=== PATIENT | female | born 1965 | race Caucasian/White ===

== ENCOUNTER 2020-01-01 08:01 | Inpatient (IN) ==
[2020-01-01 08:18] VITALS: BMI 34.5
[2020-01-01] MEDS ORDERED: ZOFRAN TAB 4 MG PO ONE (08:50)
[2020-01-01] MEDS ORDERED: TORADOL 60 MG VIAL IM ONE (08:50)
--- NOTE | 2020-01-01 09:02 | DR.EXTPAIN ---
HPI Time seen Time Seen by Provider: 01/01/20 08:43 PCP Primary Care Physician: rafiq Complaint/Symptoms Chief Complaint:: tenderness around lower rib area with worsening to the pit of the abd and down to umbilicus. onset last night about 1999 late last meal at 1900 yesterday. has had similiar pain in the last year. 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 Past Surgical History Comment: carpal tunnel Family History History of Family Medical Conditions: Yes Family Medical History: Diabetes Mellitus, Cancer and Coronary Artery Disease Social History Type of Tobacco Use: None Alcohol Use: Rarely Do you use any recreational Drugs:: No Lives With: Family Lives Where: Home Travel Risk Coronavirus risk:travel/contact w/high risk person: No Has patient experienced Coronavirus symptoms: No Infectious screening In the last 2 months have you had wt loss of >10#?: NO Have you had fever, night sweats or hemotysis?: No Have you traveled outside the country in the last 6 months?: No Isolation: Standard ROS Review of Systems Constitutional: No Symptoms Reported Eyes: No Symptoms Reported ENTM: No Symptoms Reported Respiratoy: No Symptoms Reported Cardiovascular: No Symptoms Reported Gastrointestinal/Abdominal: Abdominal Pain and Nausea Genitourinary: No Symptoms Reported Neurological: No Symptoms Reported Musculoskeletal: No Symptoms Reported Integumentary: No Symptoms Reported Endocrine: No Symptoms Reported Psychiatric: No Symptoms Reported All Other Systems: Reviewed and Negative PE Vital Signs Vitals: Temperature 97.3 F Pulse Rate 95 Respiratory Rate 20 Blood Pressure 130/87 O2 Sat by Pulse Oximetry 95 General Limitations: No Limitations General Appearance: Alert and In No Apparent Distress Head Head Exam: Normal Inspection, Atraumatic and Normocephalic Eyes Eye exam: Normal Appearance and EOMI ENT ENT Exam: Normal Exam and Normal Oropharynx Neck Neck Exam: Normal Inspection, Full ROM and Trachea Midline Chest Chest Inspection: Normal Inspection Respiratory Respiratory Exam: Normal Lung Sounds Bilat Respiratory Exam: Bilateral: Clear to Auscultation Cardiovascular Cardiovascular Exam: Regular Rate Abdominal Exam Abdominal Exam: Normal Inspection, Normal Bowel Sounds, Soft and Tenderness; negative Distention and Guarding Abdominal Tenderness: Epigastrium Extremities Extremities Exam: Normal Inspection and Full ROM Upper Extremities Shoulder Exam: Normal Inspection and Full ROM Arm Exam: Normal Inspection and Full ROM Elbow Exam: Normal Inspection and Full ROM Forearm Exam: Normal Inspection and Full ROM Hand Exam: Normal Inspection and Full ROM Neuromotor Exam: Normal Exam Lower Extremities Upper Leg Exam: Normal Inspection Knee Exam: Normal Inspection Lower Leg Exam: Normal Inspection Ankle Exam: Normal Inspection Foot/Toe Exam: Normal Inspection Gait Exam: Observed and Normal Back Back Exam: Normal Inspection Neurological Neurological Exam: Alert, Oriented X3, CN II-XII Intact and Normal Gait Psychiatric Psychiatric Exam: Normal Affect Skin Skin Exam: Normal Color COURSE Consultation Called: 12:32 Call Returned: 12:32 Consultation Comments: case discussed with Dr. KARLO metz for IVF and antibiotics 1238: case discussed with DR. Raisa metz ROR Labs Reviewed Result Diagrams: 01/01/20 09:10 01/01/20 09:10 Laboratory: WBC 14.3 X10^3/uL (3.6-10.0) H 01/01/20 09:10 RBC 5.37 X10^6/uL (3.5-5.4) 01/01/20 09:10 Hgb 14.8 g/dL (12.0-16.0) 01/01/20 09:10 Hct 44.1 % (36.0-47.0) 01/01/20 09:10 MCV 82.1 fL (80.0-100.0) 01/01/20 09:10 MCH 27.6 pg (27.0-34.0) 01/01/20 09:10 MCHC 33.6 g/dL (33.0-35.0) 01/01/20 09:10 RDW 13.1 % (11.6-16.5) 01/01/20 09:10 Plt Count 319 X10^3/uL (150.0-450.0) 01/01/20 09:10 MPV 7.3 fL (7.4-11.0) L 01/01/20 09:10 Neut % (Auto) 84.7 % (42.0-75.0) H 01/01/20 09:10 Lymph % (Auto) 8.9 % (21.0-51.0) L 01/01/20 09:10 [place] % (Auto) 4.4 % (0.0-13.0) 01/01/20 09:10 Eos % (Auto) 1.1 % (0.9-2.9) 01/01/20 09:10 Baso % (Auto) 0.9 % (0.2-1.0) 01/01/20 09:10 Neut # (Auto) 12.1 x10^3/uL (2.2-4.8) H 01/01/20 09:10 Lymph # (Auto) 1.3 X10^3/uL (1.3-2.9) 01/01/20 09:10 [place] # (Auto) 0.6 x10^3/uL (0.3-0.8) 01/01/20 09:10 Eos # (Auto) 0.2 x10^3/uL (0.0-0.2) 01/01/20 09:10 Baso # (Auto) 0.1 X10^3/uL (0.0-0.1) 01/01/20 09:10 Absolute Nucleated RBC 0.0 /100WBC 01/01/20 09:10 Sodium 138 mmol/L (136-145) 01/01/20 09:10 Corrected Sodium 142 mmol/L (136-145) 01/01/20 09:10 Potassium 3.8 mmol/L (3.5-5.1) 01/01/20 09:10 Chloride 102 mmol/L (98-107) 01/01/20 09:10 Carbon Dioxide 26.6 mmol/L (21-32) 01/01/20 09:10 BUN 19 mg/dL (7-18) H 01/01/20 09:10 Creatinine 0.70 mg/dL (0.55-1.02) 01/01/20 09:10 Est GFR (MDRD) Af Amer > 60 (>60) 01/01/20 09:10 Est GFR (MDRD) Non-Af > 60 (>60) 01/01/20 09:10 Glucose 269 mg/dL (65-99) H 01/01/20 09:10 Calcium 8.2 mg/dL (8.5-10.1) L 01/01/20 09:10 Corrected Calcium TNP 01/01/20 09:10 Total Bilirubin 0.50 mg/dL (0.2-1.0) 01/01/20 09:10 AST 174 Units/L (15-37) H 01/01/20 09:10 ALT 281 Units/L (12-78) H 01/01/20 09:10 Alkaline Phosphatase 125 Units/L (46-116) H 01/01/20 09:10 Total Protein 8.0 g/dL (6.4-8.2) 01/01/20 09:10 Albumin 3.8 g/dL (3.4-5.0) 01/01/20 09:10 Globulin 4.2 g/dL (2.5-4.5) 01/01/20 09:10 Albumin/Globulin Ratio 0.9 Ratio (1.1-2.1) L 01/01/20 09:10 Lipase 63721 Units/L (73-393) H 01/01/20 09:10 HCG, Qual Negative <10 mIU/mL 01/01/20 09:10 Specimen Type Clean catch urine 01/01/20 08:54 Urine Color Yellow (YELLOW) 01/01/20 08:54 Urine Appearance Hazy (CLEAR) 01/01/20 08:54 Urine pH 5.0 (5.0 - 8.0) 01/01/20 08:54 Ur Specific [place] 1.020 (1.000-1.030) 01/01/20 08:54 Urine Protein Negative (NEGATIVE) 01/01/20 08:54 Urine Glucose (UA) 4+ (NEGATIVE) 01/01/20 08:54 Urine Ketones Negative (NEGATIVE) 01/01/20 08:54 Urine Occult Blood Negative (NEGATIVE) 01/01/20 08:54 Urine Nitrite Negative (NEGATIVE) 01/01/20 08:54 Urine Bilirubin Negative (NEGATIVE) 01/01/20 08:54 Urine Urobilinogen Normal (NORMAL) 01/01/20 08:54 Ur Leukocyte Esterase Negative (NEGATIVE) 01/01/20 08:54 Urine RBC None seen /HPF (0-3) 01/01/20 08:54 Urine WBC None seen /HPF (0-5) 01/01/20 08:54 Ur Squamous Epith Cells Rare /HPF (NEGATIVE) 01/01/20 08:54 Urine Bacteria Negative /HPF (NEGATIVE) 01/01/20 08:54 Ur Culture Indicated? No/not indicated 01/01/20 08:54 Opioid Opioid Risk Tool Age (Jaret box if 16-45): No History of Preadolescent Sexual Abuse: No Total: 0 Total Score Risk Category: Low Risk Copyright: Juniro BACON predicting aberrant behaviors
[2020-01-01] MEDS ORDERED: ZOFRAN TAB 4 MG ONE (09:06)
[2020-01-01] MEDS ORDERED: TORADOL 60 MG VIAL ONE (09:06)
[2020-01-01 09:16] LABS: BILIRUBIN,URINE NEGATIVE (NEGATIVE); BLOOD/HEMOGLOBIN,URINE NEGATIVE (NEGATIVE); GLUCOSE, URINE 4+ (NEGATIVE); KETONES,URINE NEGATIVE (NEGATIVE); LEUKOCYTE ESTERASE ,URINE NEGATIVE (NEGATIVE); NITRITES,URINE NEGATIVE (NEGATIVE); PROTEIN,URINE NEGATIVE (NEGATIVE); UROBILINOGEN,URINE NORMAL (NORMAL)
[2020-01-01 09:18] LABS: APPEARANCE,URINE HAZY (CLEAR); COLOR,URINE YELLOW (YELLOW)
[2020-01-01 09:23] LABS: BASOPHILS # (AUTO) 0.1 X10^3/uL (0.0-0.1); BASOPHILS % (AUTO) 0.9 % (0.2-1.0); EOSINOPHILS # (AUTO) 0.2 x10^3/uL (0.0-0.2); EOSINOPHILS % (AUTO) 1.1 % (0.9-2.9); HEMATOCRIT 44.1 % (36.0-47.0); HEMOGLOBIN 14.8 g/dL (12.0-16.0); LYMPHOCYTES # (AUTO) 1.3 X10^3/uL (1.3-2.9); LYMPHOCYTES % (AUTO) 8.9 % (21.0-51.0); MEAN CORPUSCULAR HEMOGLOBIN 27.6 pg (27.0-34.0); MEAN CORPUSCULAR HGB CONC 33.6 g/dL (33.0-35.0); MEAN CORPUSCULAR VOLUME 82.1 fL (80.0-100.0); MEAN PLATELET VOLUME 7.3 fL (7.4-11.0); MONOCYTES # (AUTO) 0.6 x10^3/uL (0.3-0.8); MONOCYTES % (AUTO) 4.4 % (0.0-13.0); NEUTROPHILS # (AUTO) 12.1 x10^3/uL (2.2-4.8); NEUTROPHILS % (AUTO) 84.7 % (42.0-75.0); PLATELET COUNT 319 X10^3/uL (150.0-450.0); RED BLOOD COUNT 5.37 X10^6/uL (3.5-5.4); RED CELL DISTRIBUTION WIDTH 13.1 % (11.6-16.5); WHITE BLOOD COUNT 14.3 X10^3/uL (3.6-10.0)
--- NOTE | 2020-01-01 09:24 | RAD ---
HISTORYABD PAIN patient reports epigastric painSTUDYACUTE ABDOMEN SERIESCOMPARISONNoneFINDINGSThis study includes AP chest, upright abdomen, and supine abdomen.The lungs are not well inflated. As result, there are hypoventilatory changes. No evidence for pneumonia or significant effusion.Heart size probably normal when accounting for the degree of inflation.Gas is present in nondilated bowel. No bowel obstruction or free air.No abnormal calcification is present.Bones are unremarkable.IMPRESSION1. [No acute cardiopulmonary disease.]2. [No evidence for acute abdominal pathology identified.]Electronically signed by: Darren Martinez (Jan 01, 2020 09:23:15)
[2020-01-01 09:34] LABS: ALANINE AMINOTRANSFERASE 281 Units/L (12-78); ALBUMIN 3.8 g/dL (3.4-5.0); ALKALINE PHOSPHATASE 125 Units/L (46-116); ASPARTATE AMINO TRANSFERASE 174 Units/L (15-37); BLOOD UREA NITROGEN 19 mg/dL (7-18); CALCIUM 8.2 mg/dL (8.5-10.1); CARBON DIOXIDE 26.6 mmol/L (21-32); CHLORIDE 102 mmol/L (98-107); COR NA(FOR HYPERGLY) 142 mmol/L (136-145); SODIUM 138 mmol/L (136-145); eGFR NON BLACK RACES > 60 (>60)
[2020-01-01 09:37] LABS: SERUM PREGNANCY TEST, QUAL NEGATIVE <10 mIU/mL
[2020-01-01 09:44] LABS: BACTERIA,URINE NEGATIVE /HPF (NEGATIVE); RBC,URINE NONE SEEN /HPF (0-3); SQUAMOUS EPITHELIAL CELL,UR RARE /HPF (NEGATIVE)
[2020-01-01 09:56] LABS: LIPASE 12621 Units/L (73-393)
--- NOTE | 2020-01-01 12:28 | US ---
HISTORYSEVERE RUQ PAINSTUDYGALL BLADDERCOMPARISONNoneTECHNIQUEMultiple parikh scale and color flow Doppler images of the right upper quadrant were obtained.FINDINGSThe liver is normal in size and increased in echotexture. No focal identifiable hepatic mass or intrahepatic biliary ductal dilatation.Cholelithiasis. Positive sonographic Carroll sign. No gallbladder wall thickening. Possible trace pericholecystic fluid.. The common bile duct is mildly prominent measuring 0.6 cm.Limited visualized portions of the pancreas are unremarkable.The right kidney appears normal in size measuring up to 10 cm. No stones or hydronephrosis.IMPRESSIONFindings concerning for acute cholecystitis. Mild prominence of the common bile duct which may be physiologic. Choledocholithiasis not excluded. MRCP or ERCP could better evaluate.Electronically signed by: KYLE BATES (Jan 01, 2020 12:28:14)
[2020-01-01] MEDS ORDERED: NS 250 ML IV 250 ML IV ONE (15:01)
[2020-01-01] MEDS: ZOSYN VIAL 3.375 GRAMS 3.375 G in NS 100 ML IV + SPIKE MINIBAG* 100 ML IV SCH ×2 (15:12→22:13)
[2020-01-01] MEDS: NS 1000 ML 1,000 ML IV SCH ×2 (15:12→22:51)
[2020-01-01] MEDS: PROTONIX INJ 40 MG VIAL IVP SCH (15:13)
[2020-01-01] MEDS ORDERED: MORPHINE SULFATE INJ 2 MG INJ IVP PRN (21:47)
[2020-01-01] MEDS ORDERED: MORPHINE SULFATE INJ 2 MG INJ ONE (22:00)
[2020-01-02] MEDS: ZOSYN VIAL 3.375 GRAMS 3.375 G in NS 100 ML IV + SPIKE MINIBAG* 100 ML IV SCH ×4 (05:31→21:11)
[2020-01-02] MEDS: NS 1000 ML 1,000 ML IV SCH ×3 (05:31→21:12)
[2020-01-02 06:52] LABS: BASOPHILS # (AUTO) 0.1 X10^3/uL (0.0-0.1); BASOPHILS % (AUTO) 0.6 % (0.2-1.0); EOSINOPHILS # (AUTO) 0.2 x10^3/uL (0.0-0.2); EOSINOPHILS % (AUTO) 1.6 % (0.9-2.9); HEMOGLOBIN 12.3 g/dL (12.0-16.0); LYMPHOCYTES # (AUTO) 1.7 X10^3/uL (1.3-2.9); LYMPHOCYTES % (AUTO) 15.8 % (21.0-51.0); MEAN CORPUSCULAR HEMOGLOBIN 27.6 pg (27.0-34.0); MEAN CORPUSCULAR HGB CONC 33.2 g/dL (33.0-35.0); MEAN PLATELET VOLUME 7.7 fL (7.4-11.0); MONOCYTES # (AUTO) 0.7 x10^3/uL (0.3-0.8); MONOCYTES % (AUTO) 6.6 % (0.0-13.0); NEUTROPHILS # (AUTO) 8.2 x10^3/uL (2.2-4.8); NEUTROPHILS % (AUTO) 75.4 % (42.0-75.0); PLATELET COUNT 264 X10^3/uL (150.0-450.0); RED BLOOD COUNT 4.45 X10^6/uL (3.5-5.4); RED CELL DISTRIBUTION WIDTH 13.2 % (11.6-16.5); WHITE BLOOD COUNT 10.9 X10^3/uL (3.6-10.0)
[2020-01-02 07:05] LABS: ALANINE AMINOTRANSFERASE 144 Units/L (12-78); ALBUMIN 2.9 g/dL (3.4-5.0); ALKALINE PHOSPHATASE 98 Units/L (46-116); AMYLASE 212 Units/L (25-115); ASPARTATE AMINO TRANSFERASE 41 Units/L (15-37); BLOOD UREA NITROGEN 16 mg/dL (7-18); CALCIUM 7.7 mg/dL (8.5-10.1); CARBON DIOXIDE 26.1 mmol/L (21-32); CHLORIDE 106 mmol/L (98-107); COR CA(FOR HYPOALB) 8.6 mg/dL (8.5-10.1); COR NA(FOR HYPERGLY) 143 mmol/L (136-145); CREATININE 0.53 mg/dL (0.55-1.02); LIPASE 1224 Units/L (73-393); SODIUM 141 mmol/L (136-145); TOTAL PROTEIN 6.6 g/dL (6.4-8.2); eGFR NON BLACK RACES > 60 (>60)
[2020-01-02] MEDS: PROTONIX INJ 40 MG VIAL IVP SCH (08:29)
[2020-01-02] MEDS: K-DUR TAB 20 MEQ PO SCH (11:00)
--- NOTE | 2020-01-02 11:20 | DR.H&P ---
H&P History & Physical for Day of: H&P Date: 01/02/20 Chief Complaint Chief Complaint: abdominal pain and nausea Allergies Allergies Allergy/AdvReac Type Severity Reaction Status Date / Time No Known Drug Allergies Allergy Verified 01/01/20 08:09 History of Present Illness History of Present Illness: Ms. Gomes is a 54y/o female with a PMH of DM presented with worsening abdominal pain and nausea. Patient has a hx of recurrent pancreatitis for the past one year. She does not have a PCP right now and has not been any medications for her DM. Patient states she did not seek medical attention for prev episodes due to not having any insurance. She states her abdominal pain is located in the epigastric region for the past 2 days. Denies vomiting or diarrhea. ER work-up - GB U/S: suggestive of acute cholecystitis - Labs: Lipase: 07156 --> 1224 WBC 14.3, now 10.9 K-3.4 Dr. Merlos was consulted and patient was started on IVF, NPO , pain control and Zosyn. This morning patient reports significant improvement in her symptoms. She states this is her 5th episode of pancreatitis. Plan: continue current care with IVF, pain control, Zosyn and NPO. Follow surge ry recommendations. Monitor AM labs. 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 Family History Family Medical History: Diabetes Mellitus, Cancer and Coronary Artery Disease Social History Does patient currently use any type of tobacco product: No Have you used tobacco products in the last 12 months: No Type of Tobacco Use: None Alcohol Use: Rarely Medications Home Medications: No Known Drug Allergies Allergy (Verified 01/01/20 08:09) CONTINUE taking the following medications NK 01/01/20 [History] Labs Result Diagrams: 01/02/20 06:05 01/02/20 06:05 Labs: Laboratory WBC 10.9 X10^3/uL (3.6-10.0) H 01/02/20 06:05 RBC 4.45 X10^6/uL (3.5-5.4) 01/02/20 06:05 Hgb 12.3 g/dL (12.0-16.0) D 01/02/20 06:05 Hct 37.0 % (36.0-47.0) 01/02/20 06:05 MCV 83.0 fL (80.0-100.0) 01/02/20 06:05 MCH 27.6 pg (27.0-34.0) 01/02/20 06:05 MCHC 33.2 g/dL (33.0-35.0) 01/02/20 06:05 RDW 13.2 % (11.6-16.5) 01/02/20 06:05 Plt Count 264 X10^3/uL (150.0-450.0) 01/02/20 06:05 MPV 7.7 fL (7.4-11.0) 01/02/20 06:05 Neut % (Auto) 75.4 % (42.0-75.0) H 01/02/20 06:05 Lymph % (Auto) 15.8 % (21.0-51.0) L 01/02/20 06:05 [place] % (Auto) 6.6 % (0.0-13.0) 01/02/20 06:05 Eos % (Auto) 1.6 % (0.9-2.9) 01/02/20 06:05 Baso % (Auto) 0.6 % (0.2-1.0) 01/02/20 06:05 Neut # (Auto) 8.2 x10^3/uL (2.2-4.8) H 01/02/20 06:05 Lymph # (Auto) 1.7 X10^3/uL (1.3-2.9) 01/02/20 06:05 [place] # (Auto) 0.7 x10^3/uL (0.3-0.8) 01/02/20 06:05 Eos # (Auto) 0.2 x10^3/uL (0.0-0.2) 01/02/20 06:05 Baso # (Auto) 0.1 X10^3/uL (0.0-0.1) 01/02/20 06:05 Absolute Nucleated RBC 0.0 /100WBC 01/02/20 06:05 Sodium 141 mmol/L (136-145) 01/02/20 06:05 Corrected Sodium 143 mmol/L (136-145) 01/02/20 06:05 Potassium 3.4 mmol/L (3.5-5.1) L 01/02/20 06:05 Chloride 106 mmol/L (98-107) 01/02/20 06:05 Carbon Dioxide 26.1 mmol/L (21-32) 01/02/20 06:05 BUN 16 mg/dL (7-18) 01/02/20 06:05 Creatinine 0.53 mg/dL (0.55-1.02) L 01/02/20 06:05 Est GFR (MDRD) Af Amer > 60 (>60) 01/02/20 06:05 Est GFR (MDRD) Non-Af > 60 (>60) 01/02/20 06:05 Glucose 187 mg/dL (65-99) H 01/02/20 06:05 POC Glucose (mg/dL) 178 mg/dL (65-99) H 01/02/20 05:27 Calcium 7.7 mg/dL (8.5-10.1) L 01/02/20 06:05 Corrected Calcium 8.6 mg/dL (8.5-10.1) 01/02/20 06:05 Total Bilirubin 0.50 mg/dL (0.2-1.0) 01/02/20 06:05 AST 41 Units/L (15-37) H 01/02/20 06:05 ALT 144 Units/L (12-78) H 01/02/20 06:05 Alkaline Phosphatase 98 Units/L (46-116) 01/02/20 06:05 Total Protein 6.6 g/dL (6.4-8.2) 01/02/20 06:05 Albumin 2.9 g/dL (3.4-5.0) L 01/02/20 06:05 Globulin 3.7 g/dL (2.5-4.5) 01/02/20 06:05 Albumin/Globulin Ratio 0.8 Ratio (1.1-2.1) L 01/02/20 06:05 Amylase 212 Units/L (25-115) H 01/02/20 06:05 Lipase 1224 Units/L (73-393) H 01/02/20 06:05 HCG, Qual Negative <10 mIU/mL 01/01/20 09:10 Specimen Type Clean catch urine 01/01/20 08:54 Urine Color Yellow (YELLOW) 01/01/20 08:54 Urine Appearance Hazy (CLEAR) 01/01/20 08:54 Urine pH 5.0 (5.0 - 8.0) 01/01/20 08:54 Ur Specific [place] 1.020 (1.000-1.030) 01/01/20 08:54 Urine Protein Negative (NEGATIVE) 01/01/20 08:54 Urine Glucose (UA) 4+ (NEGATIVE) 01/01/20 08:54 Urine Ketones Negative (NEGATIVE) 01/01/20 08:54 Urine Occult Blood Negative (NEGATIVE) 01/01/20 08:54 Urine Nitrite Negative (NEGATIVE) 01/01/20 08:54 Urine Bilirubin Negative (NEGATIVE) 01/01/20 08:54 Urine Urobilinogen Normal (NORMAL) 01/01/20 08:54 Ur Leukocyte Esterase Negative (NEGATIVE) 01/01/20 08:54 Urine RBC None seen /HPF (0-3) 01/01/20 08:54 Urine WBC None seen /HPF (0-5) 01/01/20 08:54 Ur Squamous Epith Cells Rare /HPF (NEGATIVE) 01/01/20 08:54 Urine Bacteria Negative /HPF (NEGATIVE) 01/01/20 08:54 Ur Culture Indicated? No/not indicated 01/01/20 08:54 Review of Systems Constitutional: Malaise Eyes: No Symptoms Reported ENT: No Symptoms Reported Respiratory: No Symptoms Reported Cardiovascular: No Symptoms Reported Gastrointestinal: Nausea and Abdominal Pain Genitourinary: No Symptoms Reported Musculoskeletal: No Symptoms Reported Skin: No Symptoms Reported Neurological: No Symptoms Reported Physical Exam Vital Signs: Temperature 98.7 F Pulse Rate [Right Brachial] 83 Pulse Rate 95 Respiratory Rate 20 Blood Pressure [Right Arm] 125/59 Blood Pressure 130/87 O2 Sat by Pulse Oximetry 96 Oriented: Normal Eyes: Normal Ear: Normal Nose: Normal Throat: Normal Respiratory: Clear Throughout Cardiovascular: Normal Auscultation: Bowel Sounds: Normal Tenderness: Epigastric, Periumbilical and Mild Skin: Normal Psychiatric: Normal Mood Description: Calm Affect: Normal Speech Pattern: Clear and Appropriate Assessment/Plan (1) Acute cholecystitis: Status: Acute (2) Pancreatitis: Status: Acute (3) Hypokalemia: Status: Acute (4) Diabetes: Status: Acute Review H&P Reviewed: Yes Patient was examined?: Yes
[2020-01-02] MEDS ORDERED: HumuLIN R SC PRN (11:22)
--- NOTE | 2020-01-02 18:02 | DR.PROGNOT ---
Hospital Progress Notes - Progress Note for Day of: Progress Note Date: 01/02/20 - Chief Complaint Chief Complaint: feeling better , less pain . no nausea , no vomiting . improving pancreatic enzymes and WBC .. - Past Medical Family Social History Past Med/Fam/Surg Hx: No changes since H&P Allergies: Allergies No Known Drug Allergies Allergy (Verified 01/01/20 08:09) - Review Of Systems ROS: No change since H&P - Vital Signs Vital Signs: Temperature 99.0 F Pulse Rate [Right Brachial] 80 Pulse Rate 95 Respiratory Rate 18 Blood Pressure [Right Arm] 116/69 Blood Pressure 130/87 O2 Sat by Pulse Oximetry 96 - Physical Exam Oriented: Normal Eyes: Normal Ear: Normal Nose: Normal Throat: Normal Cardiovascular: Normal GI:Auscultation: Normal GI: Tenderness: Epigastric, Mild, Periumbilical Skin: Normal Psychiatric: Normal Mood Description: Calm Affect: Normal Speech Pattern: Clear, Appropriate - Laboratory and Diagnostics Result Diagrams: 01/02/20 06:05 01/02/20 06:05 Labs: Laboratory WBC 10.9 X10^3/uL (3.6-10.0) H 01/02/20 06:05 RBC 4.45 X10^6/uL (3.5-5.4) 01/02/20 06:05 Hgb 12.3 g/dL (12.0-16.0) D 01/02/20 06:05 Hct 37.0 % (36.0-47.0) 01/02/20 06:05 MCV 83.0 fL (80.0-100.0) 01/02/20 06:05 MCH 27.6 pg (27.0-34.0) 01/02/20 06:05 MCHC 33.2 g/dL (33.0-35.0) 01/02/20 06:05 RDW 13.2 % (11.6-16.5) 01/02/20 06:05 Plt Count 264 X10^3/uL (150.0-450.0) 01/02/20 06:05 MPV 7.7 fL (7.4-11.0) 01/02/20 06:05 Neut % (Auto) 75.4 % (42.0-75.0) H 01/02/20 06:05 Lymph % (Auto) 15.8 % (21.0-51.0) L 01/02/20 06:05 [place] % (Auto) 6.6 % (0.0-13.0) 01/02/20 06:05 Eos % (Auto) 1.6 % (0.9-2.9) 01/02/20 06:05 Baso % (Auto) 0.6 % (0.2-1.0) 01/02/20 06:05 Neut # (Auto) 8.2 x10^3/uL (2.2-4.8) H 01/02/20 06:05 Lymph # (Auto) 1.7 X10^3/uL (1.3-2.9) 01/02/20 06:05 [place] # (Auto) 0.7 x10^3/uL (0.3-0.8) 01/02/20 06:05 Eos # (Auto) 0.2 x10^3/uL (0.0-0.2) 01/02/20 06:05 Baso # (Auto) 0.1 X10^3/uL (0.0-0.1) 01/02/20 06:05 Absolute Nucleated RBC 0.0 /100WBC 01/02/20 06:05 Sodium 141 mmol/L (136-145) 01/02/20 06:05 Corrected Sodium 143 mmol/L (136-145) 01/02/20 06:05 Potassium 3.4 mmol/L (3.5-5.1) L 01/02/20 06:05 Chloride 106 mmol/L (98-107) 01/02/20 06:05 Carbon Dioxide 26.1 mmol/L (21-32) 01/02/20 06:05 BUN 16 mg/dL (7-18) 01/02/20 06:05 Creatinine 0.53 mg/dL (0.55-1.02) L 01/02/20 06:05 Est GFR (MDRD) Af Amer > 60 (>60) 01/02/20 06:05 Est GFR (MDRD) Non-Af > 60 (>60) 01/02/20 06:05 Glucose 187 mg/dL (65-99) H 01/02/20 06:05 POC Glucose (mg/dL) 114 mg/dL (65-99) H 01/02/20 17:16 Hemoglobin A1c 10.9 % 01/02/20 06:05 Calcium 7.7 mg/dL (8.5-10.1) L 01/02/20 06:05 Corrected Calcium 8.6 mg/dL (8.5-10.1) 01/02/20 06:05 Total Bilirubin 0.50 mg/dL (0.2-1.0) 01/02/20 06:05 AST 41 Units/L (15-37) H 01/02/20 06:05 ALT 144 Units/L (12-78) H 01/02/20 06:05 Alkaline Phosphatase 98 Units/L (46-116) 01/02/20 06:05 Total Protein 6.6 g/dL (6.4-8.2) 01/02/20 06:05 Albumin 2.9 g/dL (3.4-5.0) L 01/02/20 06:05 Globulin 3.7 g/dL (2.5-4.5) 01/02/20 06:05 Albumin/Globulin Ratio 0.8 Ratio (1.1-2.1) L 01/02/20 06:05 Amylase 212 Units/L (25-115) H 01/02/20 06:05 Lipase 1224 Units/L (73-393) H 01/02/20 06:05 HCG, Qual Negative <10 mIU/mL 01/01/20 09:10 Specimen Type Clean catch urine 01/01/20 08:54 Urine Color Yellow (YELLOW) 01/01/20 08:54 Urine Appearance Hazy (CLEAR) 01/01/20 08:54 Urine pH 5.0 (5.0 - 8.0) 01/01/20 08:54 Ur Specific [place] 1.020 (1.000-1.030) 01/01/20 08:54 Urine Protein Negative (NEGATIVE) 01/01/20 08:54 Urine Glucose (UA) 4+ (NEGATIVE) 01/01/20 08:54 Urine Ketones Negative (NEGATIVE) 01/01/20 08:54 Urine Occult Blood Negative (NEGATIVE) 01/01/20 08:54 Urine Nitrite Negative (NEGATIVE) 01/01/20 08:54 Urine Bilirubin Negative (NEGATIVE) 01/01/20 08:54 Urine Urobilinogen Normal (NORMAL) 01/01/20 08:54 Ur Leukocyte Esterase Negative (NEGATIVE) 01/01/20 08:54 Urine RBC None seen /HPF (0-3) 01/01/20 08:54 Urine WBC None seen /HPF (0-5) 01/01/20 08:54 Ur Squamous Epith Cells Rare /HPF (NEGATIVE) 01/01/20 08:54 Urine Bacteria Negative /HPF (NEGATIVE) 01/01/20 08:54 Ur Culture Indicated? No/not indicated 01/01/20 08:54 - Assessment and Plan 1: subsiding Gallstone pancreatitis . same plan and possible lap shaheed in Am . clear liquid today . NPO after midnight . - Problem Patient Problems: Patient Problems Hypokalemia (Acute) E87.6 Diabetes (Acute) E11.9 Pancreatitis (Acute) K85.90 Acute cholecystitis (Acute) K81.0
[2020-01-03] MEDS: NS 1000 ML 1,000 ML IV SCH ×3 (01:34→13:10)
[2020-01-03] MEDS: ZOSYN VIAL 3.375 GRAMS 3.375 G in NS 100 ML IV + SPIKE MINIBAG* 100 ML IV SCH ×2 (06:13→13:41)
[2020-01-03 06:44] LABS: ALANINE AMINOTRANSFERASE 95 Units/L (12-78); ALBUMIN 2.7 g/dL (3.4-5.0); ALKALINE PHOSPHATASE 79 Units/L (46-116); AMYLASE 48 Units/L (25-115); ASPARTATE AMINO TRANSFERASE 21 Units/L (15-37); BLOOD UREA NITROGEN 11 mg/dL (7-18); CALCIUM 7.8 mg/dL (8.5-10.1); CARBON DIOXIDE 24.5 mmol/L (21-32); CHLORIDE 107 mmol/L (98-107); COR CA(FOR HYPOALB) 8.8 mg/dL (8.5-10.1); CREATININE 0.43 mg/dL (0.55-1.02); LIPASE 186 Units/L (73-393); SODIUM 141 mmol/L (136-145); TOTAL PROTEIN 6.4 g/dL (6.4-8.2); eGFR NON BLACK RACES > 60 (>60)
[2020-01-03 07:03] LABS: BASOPHILS # (AUTO) 0.1 X10^3/uL (0.0-0.1); BASOPHILS % (AUTO) 0.7 % (0.2-1.0); EOSINOPHILS # (AUTO) 0.3 x10^3/uL (0.0-0.2); EOSINOPHILS % (AUTO) 3.3 % (0.9-2.9); HEMATOCRIT 34.3 % (36.0-47.0); HEMOGLOBIN 11.6 g/dL (12.0-16.0); LYMPHOCYTES # (AUTO) 1.9 X10^3/uL (1.3-2.9); LYMPHOCYTES % (AUTO) 18.6 % (21.0-51.0); MEAN CORPUSCULAR HGB CONC 33.8 g/dL (33.0-35.0); MEAN CORPUSCULAR VOLUME 82.8 fL (80.0-100.0); MEAN PLATELET VOLUME 7.8 fL (7.4-11.0); MONOCYTES # (AUTO) 0.7 x10^3/uL (0.3-0.8); MONOCYTES % (AUTO) 6.5 % (0.0-13.0); NEUTROPHILS # (AUTO) 7.2 x10^3/uL (2.2-4.8); NEUTROPHILS % (AUTO) 70.9 % (42.0-75.0); PLATELET COUNT 246 X10^3/uL (150.0-450.0); RED BLOOD COUNT 4.13 X10^6/uL (3.5-5.4); WHITE BLOOD COUNT 10.1 X10^3/uL (3.6-10.0)
[2020-01-03] MEDS: PROTONIX INJ 40 MG VIAL IVP SCH (08:27)
[2020-01-03] MEDS: K-DUR TAB 20 MEQ PO SCH (08:27)
[2020-01-03] MEDS: LR 1000 ML IV 1,000 ML IV ONE ×2 (10:21→10:58)
[2020-01-03] MEDS ORDERED: ANCEF 1 GRAM IV PREMIX* 0 G/0 ML BAG IV ONE ×2 (10:21→10:22)
[2020-01-03] MEDS: FENTANYL INJ 250 mcg ONE ×2 (10:47→10:58)
--- NOTE | 2020-01-03 11:26 | PCM.PROG ---
Progress Note Progress Note for Day of Date of Exam: 01/03/20 Subjective Subjective: Patient seen at bedside, reports feeling better. No events overnight. Patient states abdominal pain is better. Denies N/V/D. Dr. Merlos saw the patient yesterday and plan is to do cholecystectomy today. Patient has been NPO. Labs: WBC: 10.1 Hgb: 11.6 Lipase 186 K: 3.5 Plan: continue IVF, pain control and Zosyn. Plan for surgery today. Follow up surgery recommendations. Continue NPO. Past Medical Family Social History Past Med/Fam/Surg Hx: No changes since H&P Allergies: Allergies No Known Drug Allergies Allergy (Verified 01/01/20 08:09) Review of Systems ROS: No change since H&P Vital Signs and I&O's Vital Signs: Temperature 98.1 F Pulse Rate [Right Brachial] 62 Pulse Rate 95 Respiratory Rate 18 Blood Pressure [Right Arm] 152/60 Blood Pressure 130/87 O2 Sat by Pulse Oximetry 100 Intake and Output: Intake & Output 12/31/19 01/01/20 01/02/20 01/03/20 23:59 23:59 23:59 23:59 Intake Total 2246 / 2246 660 / 660 0 / 0 Balance 2246 / 2246 660 / 660 0 / 0 Physical Exam Oriented: Normal Eyes: Normal Ear: Normal Nose: Normal Throat: Normal Respiratory: Normal Cardiovascular: Normal Auscultation: Bowel Sounds: Normal Tenderness: Epigastric and Mild Skin: Normal Musculoskeletal: Normal Psychiatric: Normal Mood Description: Calm Affect: Normal Speech Pattern: Clear and Appropriate Laboratory and Diagnostics Result Diagrams: 01/03/20 05:45 01/03/20 05:45 Labs: Laboratory WBC 10.1 X10^3/uL (3.6-10.0) H 01/03/20 05:45 RBC 4.13 X10^6/uL (3.5-5.4) 01/03/20 05:45 Hgb 11.6 g/dL (12.0-16.0) L 01/03/20 05:45 Hct 34.3 % (36.0-47.0) L 01/03/20 05:45 MCV 82.8 fL (80.0-100.0) 01/03/20 05:45 MCH 28.0 pg (27.0-34.0) 01/03/20 05:45 MCHC 33.8 g/dL (33.0-35.0) 01/03/20 05:45 RDW 13.0 % (11.6-16.5) 01/03/20 05:45 Plt Count 246 X10^3/uL (150.0-450.0) 01/03/20 05:45 MPV 7.8 fL (7.4-11.0) 01/03/20 05:45 Neut % (Auto) 70.9 % (42.0-75.0) 01/03/20 05:45 Lymph % (Auto) 18.6 % (21.0-51.0) L 01/03/20 05:45 [place] % (Auto) 6.5 % (0.0-13.0) 01/03/20 05:45 Eos % (Auto) 3.3 % (0.9-2.9) H 01/03/20 05:45 Baso % (Auto) 0.7 % (0.2-1.0) 01/03/20 05:45 Neut # (Auto) 7.2 x10^3/uL (2.2-4.8) H 01/03/20 05:45 Lymph # (Auto) 1.9 X10^3/uL (1.3-2.9) 01/03/20 05:45 [place] # (Auto) 0.7 x10^3/uL (0.3-0.8) 01/03/20 05:45 Eos # (Auto) 0.3 x10^3/uL (0.0-0.2) H 01/03/20 05:45 Baso # (Auto) 0.1 X10^3/uL (0.0-0.1) 01/03/20 05:45 Absolute Nucleated RBC 0.0 /100WBC 01/03/20 05:45 Sodium 141 mmol/L (136-145) 01/03/20 05:45 Corrected Sodium TNP 01/03/20 05:45 Potassium 3.5 mmol/L (3.5-5.1) 01/03/20 05:45 Chloride 107 mmol/L (98-107) 01/03/20 05:45 Carbon Dioxide 24.5 mmol/L (21-32) 01/03/20 05:45 BUN 11 mg/dL (7-18) 01/03/20 05:45 Creatinine 0.43 mg/dL (0.55-1.02) L 01/03/20 05:45 Est GFR (MDRD) Af Amer > 60 (>60) 01/03/20 05:45 Est GFR (MDRD) Non-Af > 60 (>60) 01/03/20 05:45 Glucose 101 mg/dL (65-99) H 01/03/20 05:45 POC Glucose (mg/dL) 93 mg/dL (65-99) 01/03/20 05:31 Hemoglobin A1c 10.9 % 01/02/20 06:05 Calcium 7.8 mg/dL (8.5-10.1) L 01/03/20 05:45 Corrected Calcium 8.8 mg/dL (8.5-10.1) 01/03/20 05:45 Total Bilirubin 0.50 mg/dL (0.2-1.0) 01/03/20 05:45 AST 21 Units/L (15-37) 01/03/20 05:45 ALT 95 Units/L (12-78) H 01/03/20 05:45 Alkaline Phosphatase 79 Units/L (46-116) 01/03/20 05:45 Total Protein 6.4 g/dL (6.4-8.2) 01/03/20 05:45 Albumin 2.7 g/dL (3.4-5.0) L 01/03/20 05:45 Globulin 3.7 g/dL (2.5-4.5) 01/03/20 05:45 Albumin/Globulin Ratio 0.7 Ratio (1.1-2.1) L 01/03/20 05:45 Amylase 48 Units/L (25-115) 01/03/20 05:45 Lipase 186 Units/L (73-393) 01/03/20 05:45 HCG, Qual Negative <10 mIU/mL 01/01/20 09:10 Specimen Type Clean catch urine 01/01/20 08:54 Urine Color Yellow (YELLOW) 01/01/20 08:54 Urine Appearance Hazy (CLEAR) 01/01/20 08:54 Urine pH 5.0 (5.0 - 8.0) 01/01/20 08:54 Ur Specific Jenkins 1.020 (1.000-1.030) 01/01/20 08:54 Urine Protein Negative (NEGATIVE) 01/01/20 08:54 Urine Glucose (UA) 4+ (NEGATIVE) 01/01/20 08:54 Urine Ketones Negative (NEGATIVE) 01/01/20 08:54 Urine Occult Blood Negative (NEGATIVE) 01/01/20 08:54 Urine Nitrite Negative (NEGATIVE) 01/01/20 08:54 Urine Bilirubin Negative (NEGATIVE) 01/01/20 08:54 Urine Urobilinogen Normal (NORMAL) 01/01/20 08:54 Ur Leukocyte Esterase Negative (NEGATIVE) 01/01/20 08:54 Urine RBC None seen /HPF (0-3) 01/01/20 08:54 Urine WBC None seen /HPF (0-5) 01/01/20 08:54 Ur Squamous Epith Cells Rare /HPF (NEGATIVE) 01/01/20 08:54 Urine Bacteria Negative /HPF (NEGATIVE) 01/01/20 08:54 Ur Culture Indicated? No/not indicated 01/01/20 08:54 Plan (1) Acute cholecystitis: Status: Acute (2) Pancreatitis: Status: Acute (3) Hypokalemia: Status: Acute (4) Diabetes: Status: Acute
[2020-01-03] MEDS ORDERED: BACTROBAN TOPICAL OINT ONE (11:31)
[2020-01-03] MEDS ORDERED: PHENERGAN INJ 25 MG IM PRN (11:53)
[2020-01-03] MEDS ORDERED: DILAUDID INJ IVP PRN ×2 (11:53→12:01)
[2020-01-03] MEDS ORDERED: REGLAN INJ 10 MG VIAL IVP PRN (11:53)
[2020-01-03] MEDS ORDERED: BENADRYL INJ 50 MG VIAL IVP PRN (11:53)
[2020-01-03] MEDS ORDERED: ZOFRAN INJ 4 MG VIAL IVP PRN (11:53)
[2020-01-03] MEDS ORDERED: ZOFRAN INJ 4 MG VIAL ONE ×2 (12:09→12:42)
[2020-01-03] MEDS ORDERED: TORADOL 30 MG VIAL ONE (12:42)
[2020-01-03] MEDS ORDERED: SUPRANE ONE (12:42)
[2020-01-03] MEDS ORDERED: QUELICIN (OR ANECTINE) ONE (12:42)
[2020-01-03] MEDS ORDERED: VERSED ONE (12:42)
[2020-01-03] MEDS ORDERED: NEOSTIGMINE INJ ONE (12:42)
[2020-01-03] MEDS ORDERED: ROBINUL ONE (12:42)
[2020-01-03] MEDS ORDERED: XYLOCAINE 2 % (PLAIN) ONE (12:42)
[2020-01-03] MEDS ORDERED: LTA KIT LIDOCAINE 4% ONE (12:42)
[2020-01-03] MEDS ORDERED: NORCURON INJ 10 MG VIAL ONE (12:42)
[2020-01-03] MEDS ORDERED: DIPRIVAN VIAL ONE (12:42)
[2020-01-03 17:29] VITALS: BP 145/73
[2020-01-03] MEDS ORDERED: ZOFRAN TAB 4 MG PO PRN (17:40)
[2020-01-03] MEDS ORDERED: ZOFRAN TAB 4 MG ONE (17:42)
== END 2020-01-03 18:35 | disposition home or self-care (01) | DRG 417 ==
LOC: ER 08:01 → MED/SURG 12:42
PROVIDERS: ADMIT Internal Medicine; ATTEND Internal Medicine
DX: K80.00 Calculus of gallbladder with acute cholecystitis without obstruction; E87.6 Hypokalemia; E11.65 Type 2 diabetes mellitus with hyperglycemia; K85.90 Acute pancreatitis without necrosis or infection, unspecified; R10.12 Left upper quadrant pain